=== PATIENT | male | born 1965 | race Caucasian/White ===

== ENCOUNTER 2023-06-30 02:49 | Inpatient (IN) | payer SELFPAY ==
[2023-06-30] MEDS ORDERED: dilTIAZem 25 MG/5 ML VIAL ONE (03:16)
[2023-06-30] MEDS ORDERED: dilTIAZem 125 MG/25 ML SDV ONE (03:32)
[2023-06-30 03:46] LABS: #Monocytes 0.8 thou/uL (0.11-0.59); #Neutrophils 6.2 thou/uL (1.40-6.50); %Basophils 0.4 % (0.0-1.0); %Eosinophils 0.3 % (0.0-10.0); %Lymphocytes 34.9 % (21.0-51.0); %Monocytes 7.1 % (0.0-10.0); Hematocrit 47.6 % (42.0-52.0); Hemoglobin 16.1 g/dL (14.0-18.0); Mean Corpuscular HGB CONC 33.8 g/dL (32.0-36.0); Mean Corpuscular Hemoglobin 29.8 pg (27.0-31.0); Mean Corpuscular Volume 88.1 fl (78.0-98.0); Mean Platelet Volume 10.8 fL (7.4-10.4); Platelet Count 213 10x3/uL (130-400); RBC Distribution Width 13.6 % (11.5-14.5); White Blood Cell (WBC) Count 10.9 10x3/uL (4.8-10.8)
[2023-06-30 04:05] LABS: Acetaminophen Less than 10 mcg/mL (10.0-30.0); Alcohol 110.7 mg/dL (Less than 10); Salicylate Less than 8.0 mg/dL (15.0-30.0)
[2023-06-30 04:07] LABS: ALT (SGPT) 18 U/L (8-55); AST (SGOT) 20 U/L (5-34); Albumin 4.7 g/dL (3.5-5.0); Alkaline Phosphatase 64 U/L (40-110); Anion Gap 18 mmol/L (10-20); BUN (Urea Nitrogen) 13 mg/dL (8.4-25.7); Bilirubin, Total 1.2 mg/dL (0.2-1.2); Calc. Creatinine Clearance 0 mL/min (70-130); Carbon Dioxide 27 mmol/L (22-29); Chloride 100 mmol/L (98-107); Estimated GFR 72; Globulin 3.1 g/dL (2.4-3.5); Glucose 102 mg/dL (70-105); Lipase 16 U/L (8-78); Potassium 3.7 mmol/L (3.5-5.1); Protein, Total 7.8 g/dL (6.0-8.3); Sodium 141 mmol/L (136-145)
[2023-06-30 04:10] LABS: Troponin I 0.039 ng/mL (< 0.028)
[2023-06-30] MEDS ORDERED: LORazepam 2 MG/ML SYR.(CARPUJECT) ONE (04:23)
[2023-06-30] MEDS ORDERED: Aspirin Chewable 81 MG TAB ONE (04:25)
[2023-06-30] MEDS ORDERED: Magnesium 2 GM/50 ML BAG (IN WATER) ONE (04:40)
[2023-06-30] MEDS ORDERED: Ondansetron PF 4 MG/2 ML Vial ONE (05:16)
[2023-06-30 06:01] LABS: Amphetamine Not Detected (NotDetected); Barbiturates Screen Not Detected (NotDetected); Benzodiazepine Screen Not Detected (NotDetected); Cocaine Metabolite Screen Not Detected (NotDetected); Methadone Not Detected (NotDetected); Methamphetamine Not Detected (NotDetected); Opiate Screen Not Detected (NotDetected); Oxycodone Screen Not Detected (NotDetected); Phencyclidine (PCP) Not Detected (NotDetected); THC/Cannabinoid Screen Not Detected (NotDetected); Tricyclic Screen Not Detected (NotDetected)
[2023-06-30] MEDS ORDERED: Ondansetron PF 4 MG/2 ML Vial IVP PRN (06:06)
[2023-06-30] MEDS ORDERED: Ondansetron ODT 4 MG TAB SL PRN (06:06)
[2023-06-30] MEDS ORDERED: dilTIAZem 125 MG, Admixture Fee 1 EACH in Sodium Chloride 0.9% 100 ML IVPB SCH (06:06)
[2023-06-30 06:57] VITALS: BMI 38.2
[2023-06-30 10:01] LABS: Troponin I 0.027 ng/mL (< 0.028)
[2023-06-30] MEDS ORDERED: Metoprolol Tartrate 25 MG TAB PO SCH (10:45)
[2023-06-30] MEDS ORDERED: dilTIAZem 125 MG in Sodium Chloride 0.9% 100 ML IVPB SCH (10:45)
[2023-06-30] MEDS ORDERED: Losartan 25 MG TAB PO SCH (10:45)
[2023-06-30] MEDS ORDERED: Electrolyte Replacement Protocol 1 EACH FS SCH (10:45)
[2023-06-30] MEDS ORDERED: Multivit, Therapeutic 1 TAB PO SCH (11:00)
[2023-06-30] MEDS ORDERED: Folic Acid 1 MG TAB PO SCH (11:00)
[2023-06-30] MEDS ORDERED: Electrolyte Replacement Protocol FS PRN (11:30)
[2023-06-30] MEDS ORDERED: FLU VACC QS2023-24(6MOS UP)/PF 60 MCG/0.5 ML SYRINGE IM ONE (12:00)
[2023-06-30] MEDS: dilTIAZem 125 MG, Admixture Fee 1 EACH in Sodium Chloride 0.9% 100 ML IVPB SCH (14:12)
[2023-06-30] MEDS ORDERED: Acetaminophen 325 MG TAB PO PRN (20:47)
[2023-06-30] MEDS: Metoprolol Tartrate 25 MG TAB PO SCH (20:55)
[2023-06-30] MEDS: Amiodarone 200 MG TAB PO SCH (20:55)
[2023-06-30] MEDS: Apixaban 5 MG TAB PO SCH (20:56)
[2023-06-30] MEDS ORDERED: Amiodarone 200 MG TAB PO SCH (21:00)
[2023-07-01] MEDS: dilTIAZem 125 MG, Admixture Fee 1 EACH in Sodium Chloride 0.9% 100 ML IVPB SCH (04:17)
[2023-07-01] MEDS: Apixaban 5 MG TAB PO SCH ×2 (08:17→20:22)
[2023-07-01] MEDS: Amiodarone 200 MG TAB PO SCH (08:18)
[2023-07-01] MEDS: Metoprolol Tartrate 25 MG TAB PO SCH (08:18)
[2023-07-01] MEDS ORDERED: Losartan 25 MG TAB PO SCH ×2 (09:00)
[2023-07-01] MEDS ORDERED: Folic Acid 1 MG TAB PO SCH (09:00)
[2023-07-01] MEDS ORDERED: Multivit, Therapeutic 1 TAB PO SCH (09:00)
[2023-07-01] MEDS ORDERED: Metoprolol Tartrate 25 MG TAB PO SCH ×2 (09:30→21:00)
[2023-07-01] MEDS ORDERED: Nitroglycerin 0.4 MG TAB (25 Tab Bottle) SL PRN (09:46)
[2023-07-01] MEDS ORDERED: Lorazepam 1 MG TAB PO PRN (10:00)
[2023-07-01] MEDS ORDERED: Aspirin 81 mg Enteric Coated Tablet PO SCH (10:15)
[2023-07-01 10:37] LABS: #Eosinphils 0.1 thou/uL (0.0-0.7); #Monocytes 0.7 thou/uL (0.11-0.59); #Neutrophils 4.4 thou/uL (1.40-6.50); %Basophils 0.3 % (0.0-1.0); %Lymphocytes 25.2 % (21.0-51.0); %Monocytes 10.2 % (0.0-10.0); %Neutrophils 63.2 % (42.0-75.0); Hematocrit 43.2 % (42.0-52.0); Hemoglobin 14.2 g/dL (14.0-18.0); Mean Corpuscular HGB CONC 32.9 g/dL (32.0-36.0); Mean Corpuscular Hemoglobin 29.9 pg (27.0-31.0); Mean Corpuscular Volume 90.9 fl (78.0-98.0); Mean Platelet Volume 10.7 fL (7.4-10.4); Platelet Count 170 10x3/uL (130-400); RBC Distribution Width 13.7 % (11.5-14.5); Red Blood Cell (RBC) Count 4.75 mill/uL (4.70-6.10)
[2023-07-01 10:52] LABS: Phosphorus 2.3 mg/dL (2.3-4.7)
[2023-07-01 10:53] LABS: Anion Gap 13 mmol/L (10-20); BUN (Urea Nitrogen) 14 mg/dL (8.4-25.7); Calc. Creatinine Clearance 176 mL/min (70-130); Calcium 9.1 mg/dL (7.8-10.44); Carbon Dioxide 21 mmol/L (22-29); Chloride 104 mmol/L (98-107); Estimated GFR 101; Glucose 122 mg/dL (70-105); Magnesium 1.9 mg/dL (1.6-2.6); Potassium 3.8 mmol/L (3.5-5.1); Sodium 134 mmol/L (136-145)
[2023-07-01] MEDS ORDERED: Magnesium 2 GM/50 ML(in water) 2 GM in Premix 1 BAG IVPB SCH (11:30)
[2023-07-01 20:22] VITALS: BP 152/82; TEMP 98.2
[2023-07-01] MEDS ORDERED: Flecainide 50 MG TAB PO SCH (21:00)
[2023-07-01] MEDS ORDERED: Amiodarone 200 MG TAB PO SCH (21:00)
[2023-07-02] MEDS ORDERED: Aspirin 81 mg Enteric Coated Tablet PO SCH (09:00)
[2023-07-03] MEDS ORDERED: Thiamine 100 MG TAB PO SCH (11:00)
[2023-07-15] MEDS ORDERED: Amiodarone 200 MG TAB PO SCH (08:00)
== END 2023-07-01 21:08 | disposition home or self-care (01) | DRG 310 ==
LOC: ERS 02:49 → ERHOLD 06:09 → CCU 09:27 → IMCU/EMU 13:34 → 2NO 07-01 14:22
PROVIDERS: ADMIT Student in an Organized Health Care Education/Training Program; ATTEND Internal Medicine
DX: I48.0 Paroxysmal atrial fibrillation (principal); F10.20 Alcohol dependence, uncomplicated; I50.9 Heart failure, unspecified; I25.10 Atherosclerotic heart disease of native coronary artery without angina pectoris; E66.9 Obesity, unspecified; I11.0 Hypertensive heart disease with heart failure; R07.9 Chest pain, unspecified; Z79.899 Other long term (current) drug therapy; Z71.41 Alcohol abuse counseling and surveillance of alcoholic; Z68.38 Body mass index [BMI] 38.0-38.9, adult; Z82.49 Family history of ischemic heart disease and other diseases of the circulatory system
CPT/HCPCS: 36415; 71045; 80048; 80053; 80306; 80307; 83690; 83735; 83880; 84100; 84484; 85025; 93005; 93306; 96361; 96365; 96366; 96367; 96375; 96376; J2060; J2405; J3411; J3475; J3490